=== PATIENT | female | born 1985 | race Caucasian/White ===

== ENCOUNTER 2016-12-22 05:45 | Observation (INO) | payer OTHER ==
[~2016-12-22] VITALS: Ht 165.1 cm; Wt 61.3 kg
[2016-12-22] VITALS (14 sets, daily range): BP systolic 127–154; BP diastolic 72–106; PULSE 59–82; RESP 11–18; O2SAT 95–100
--- NOTE | 2016-12-22 06:00 | ED.REPORT ---
HPI-Abd Pain F Under 40 Date of Service December 22, 2016 ED Provider: Campos Castro DO A healthy 31 year old female presents to the ER complaining of upper abdominal pain onset yesterday evening, worsening throughout the night. Pain radiates into her back. She also complains of nausea. Patient denies vomiting, diarrhea, abnormal vaginal bleeding, vaginal discharge, pelvic pain, and dysuria. She is on control. Nursing Notes Stated Complaint: ABDOMINAL PAIN Chief Complaint: Female Abdominal Pain Nursing Notes Reviewed: Yes Allergies: Coded Allergies: No Known Allergies (Verified , 12/22/16) General Time Seen by MD: 06:00 Chief Complaint Abdominal pain Hx Obtained From: Patient Arrived By: Walk-in Sudden in Onset?: No Onset Occurred: Yesterday Symptom Duration: Since onset Location: : Abdomen upper Quality: Fullness Radiation: : Back Severity: Current: Moderate Severity: Maximum: Moderate Associated with: Reports: Back pain, Denies: Diarrhea, Dysuria, Nausea, Vaginal bleeding, Vaginal discharge, Vomiting Pertinent Negative: Pt denies other symptoms Similar Sx Previous: No Past Medical History Past Medical History Pyloric stenosis as an Smoking History Never Smoker Social History Alcohol Use: Denies alcohol use Ambulatory Status Independent Review of Systems Constitutional: Denies: Chills, Fever Respiratory: Denies: Non-productive cough GI: Reports: Abdominal pain, Denies: Diarrhea, Nausea, Vomiting Female: Denies: Dysuria, Flank pain, Hematuria, Pelvic pain, , Vaginal bleeding - abnl, Vaginal discharge Musculoskeletal: Reports: Back pain Complete sys rev & neg: except as marked. Physical Exam Physical Exam Notes: mild cva ruq Initial Vital Signs Vital Signs (First) Date Time Temp Pulse Resp B/P Pulse Ox O2 Delivery O2 Flow Rate FiO2 12/22/16 05:50 36.3 74 16 127/80 100 Room Air Initial VS: Reviewed Head / Eyes: Atraumatic, Normocephalic Neck: Supple, Non-tender, Full range of motion Extremities: Vascular intact, Neuro intact, No swelling, No tenderness Skin: Warm, Dry, No cyanosis Neurologic: Alert, Oriented, Nonfocal Psychiatric: Mood/affect normal, Behavior normal, Normal thought content General/Constitutional: Awake, Alert, Well developed Distress / Hydration: Positive: Distress moderate Respiratory / Chest: Breath sounds NL, Breath sounds = bilat, No respiratory distress, No rales, No rhonchi, No wheezing Cardiovascular: Heart rate NL, Regular rhythm, Heart sounds NL, Peripheral circulation NL Abdomen: Soft, No guarding, No rebound, No distention Tenderness/Guarding/Rebound: Positive: Tender RUQ... (Moderate) Back: Full range of motion, No midline vertebral tend Right CVA tenderness. Interpretation & Diagnostics US ABDOMEN IMPRESSION: 1. Cholelithiasis with the focally thickened gallbladder wall measuring up to 4.4 mm and positive sonographic Barbosa sign. Developing cholecystitis cannot be excluded and close clinical correlation is recommended. 2. Dilatation of the extrahepatic bile duct and choledocholithiasis although not visualized sonographically, cannot be excluded. Correlate with LFTs and if indicated MRCP could be performed. Dr. Castro given results at 1046 hrs. 12/22/2016. Dictated by: Elie Bourgeois RRA Interpreted: Kodak Yu MD on 12/22/2016 at 10:43 Transcribed by: KRISTI on 12/22/2016 at 10:47 Lab Results Interpretation Result Diagram: 12/22/16 0650 12/22/16 0650 Test 12/22/16 06:00 12/22/16 06:50 Hold Urine Received (Received) White Blood Count 9.3th/mm3 (3.8-10.1) Red Blood Count 4.64mil/mm3 (3.90-5.20) Hemoglobin 11.4g/dL (12.0-15.6) Hematocrit 36.2% (35.0-46.0) Mean Corpuscular Volume 78.0fL (81-100) Mean Corpuscular Hemoglobin 24.6pg (27.0-35.0) Mean Corpuscular Hemoglobin Concent 31.5% (32.0-37.0) Red Cell Distribution Width 15.1% (12.3-15.4) Platelet Count 341bil/L (150-400) Neutrophils (%) (Auto) 83.5% (40-74) Lymphocytes (%) (Auto) 10.5% (14-46) Monocytes (%) (Auto) 4.6% (4-12) Eosinophils (%) (Auto) 0.8% (0-5) Basophils (%) (Auto) 0.4% (0-3) Prothrombin Time 10.3sec (8.1-12.5) Prothromb Time International Ratio 0.96ratio Sodium Level 140mEq/L (134-144) Potassium Level 4.0mEq/L (3.5-5.2) Chloride Level 102mEq/L (97-108) Carbon Dioxide Level 24mmol/L (18-29) Blood Urea Nitrogen 14mg/dL (6-20) Creatinine 0.49mg/dL (0.57-1.00) Estimat Glomerular Filtration Rate 214mL/min (>59) Glucose Level 118mg/dL (60-99) Calcium Level 9.2mg/dL (8.5-10.1) Magnesium Level 2.2mg/dL (1.6-2.6) Total Bilirubin 0.8mg/dL (0.0-1.2) Aspartate Amino Transf (AST/SGOT) 109U/L (0-50) Alanine Aminotransferase (ALT/SGPT) 57U/L (0-32) Alkaline Phosphatase 65U/L (25-150) Total Protein 7.2g/dL (6.4-8.4) Albumin 4.6g/dL (3.4-5.0) Lipase 45U/L (13-60) Hold Solomon Top Tube Received (Received) Re-Eval/Medical Decision Med Decision/Clinical Course Med Decision/Clinical Course: Acute cholecystitis. Will admit. Ancef given. Re-Evaluation/Progress #1: Time of Eval: 09:20 Re-Evaluation/Progress Note: Discussed lab results and updated patient on the plan of care. All questions addressed. Re-Evaluation/Progress #2: Time of Eval: 10:05 Re-Evaluation/Progress Note: Continues to have pain. I told her that we are still waiting on the results of her ultrasound. Re-Evaluation/Progress #3: Time of Eval: 10:58 Re-Evaluation/Progress Note: Discussed US results and need for admission. Patient is amenable to the plan. All other questions addressed. Consultation #1: Referral / Consult Name: Elie Bourgeois RPA, RA Consulted With: On-call physician (Radiology) Call Returned at: 10:44 Note: Discussed US results with Radiology. Early cholecystitis. Correlate bile duct with LFT's. Consultation #2: Referral / Consult Name: Saji Espinoza MD Consulted With: Surgeon Call Returned at: 10:49 Customer Sales Advisor: Agrees with eval, Agrees with plan, Accepts admit Counseled Regarding: Diagnosis, Lab results, Need for admission Discharge & Departure Primary Impression: Cholecystitis Disposition: ADMITTED TO HOSPITAL Discharge Condition All VS Reviewed: Yes Condition: Stable Referrals: Isaura Menjivar MD (PCP) Scribjodee Attestation Portions of this note were transcribed by Uvaldo Bruce. I, Dr. Castro, personally performed the history, physical exam and medical decision-making; I reviewed and confirmed the accuracy of the information in the transcribed note. Signed by: Deana Mccray, 12/22/2016 and 11:09 copies to: Isaura Menjivar MD, Timothy S DO December 22, 2016 06:00 UVALDO BRUCE December 22, 2016 06:18
[2016-12-22] MEDS ORDERED: 0.9% Sodium Chloride 1,000 ML IV ONE (06:37)
[2016-12-22] MEDS ORDERED: Ketorolac 15 mg/mL Inj IVPUSH ONE (06:40)
[2016-12-22] MEDS: Ondansetron 2 mg/mL 2 mL Inj IVPUSH PRN ×3 (06:54→21:54)
[2016-12-22 07:00] LABS: BASOPHILS % (AUTO) 0.4 % (0-3); EOSINOPHILS % (AUTO) 0.8 % (0-5); MONOCYTES % (AUTO) 4.6 % (4-12); Mean Corpuscular Hemoglobin 24.6 pg (27.0-35.0); NEUTROPHILS % (AUTO) 83.5 % (40-74); Platelet Count 341 bil/L (150-400)
[2016-12-22 07:34] LABS: Magnesium 2.2 mg/dL (1.6-2.6)
--- NOTE | 2016-12-22 10:48 | DRSVH ---
PROCEDURE: US ABDOMEN INDICATIONS: upper abd pain, abnl LFT TECHNIQUE: Real-time scanning was performed of the abdominal and retroperitoneal organs, with image documentatio n. COMPARISON: None. FINDINGS: Liver length: 17.36 cm Gallbladder Wall Thickness: 2.60 mm CHD: 1.10 cm CBD: 8.40 mm Spleen length: 10.31 cm Right kidney length: 11.93 cm Left kidney length: 11.00 cm Aorta(Proximal): 2.38 cm Aorta(Mid): 1.90 cm Aorta(Distal): 1.58 cm RCIA: 8.70 mm LCIA: 8.70 mm Liver: Liver is diffusely increased in echogenicity. No focal hepatic abnormalities identified. No rmal hepatic size. Gallbladder: Small gallstones present and the gallbladder wall is focally thickened measuring up to 4 .4 mm. Musical Therapist indicates positive sonographic Barbosa sign. Biliary ducts: Intrahepatic bile ducts are non-dilated. Extrahepatic bile duct caliber is dilated m easuring up to 11 mm Pancreas: Visualized portions of the pancreas are sonographically normal. Spleen: Spleen is normal in size and homogeneous in echotexture. Kidneys: Kidneys are normal in size and echotexture. No hydronephrosis or nephrolithiasis. No ramy d masses. Aorta: Visualized aorta is normal in caliber at less than 3 cm. Iliacs: Proximal common iliac arteries are normal in caliber at less than 2.5 cm. IVC: Intrahepatic inferior vena cava is patent. Miscellaneous: No free abdominal fluid. IMPRESSION: 1. Cholelithiasis with the focally thickened gallbladder wall measuring up to 4.4 mm and positive son ographic Barbosa sign. Developing acute cholecystitis cannot be excluded and close clinical correlati on is recommended. 2. Dilatation of the extrahepatic bile duct and choledocholithiasis although not visualized sonograph ically, cannot be excluded. Correlate with LFTs and if indicated MRCP could be performed. Dr. Castro given results at 1046 hrs. 12/22/2016. Dictated by: Elie ANGELES Interpreted: Kodak Yu MD on 12/22/2016 at 10:43 Transcribed by: KRISTI on 12/22/2016 at 10:47 Approved by: Kodak Yu M.D. on 12/22/2016 at 11:06
[2016-12-22] MEDS: 0.9% Sodium Chloride 1,000 ML IV SCH ×2 (10:49→20:33)
[2016-12-22] MEDS ORDERED: CeFAZolin Inj 2 GM in IV Premix 1 EACH IV ONE ×2 (10:50→12:15)
[2016-12-22 11:01] LABS: INR 0.96 ratio
--- NOTE | 2016-12-22 11:31 | PCM.HPSURG ---
Subjective Date of Service: December 22, 2016 Referring Provider: Admitting Physician: Primary Care Physician: Joelle Attending Physician: Chief Complaint Right upper quadrant pain History of Present Illness Surgical H&P: Attending physician Dr. Espinoza, Resident Physician Dr. Tillman Ms. Hong is a 31 year old female with no significant past medical history, past surgical history of for pyloric stenosis age 5 weeks who presented to the ED via POV secondary to RUQ abdominal pain x 1 day. She states that last night at about 2200 she had a sudden onset of RUQ sharp and shooting pain, radiating to her back and increasing in severity overnight. She had a similar episode to this one month prior which resolved on its own within the day. She states nausea but denies vomiting, states that she has had periods of hot and cold feeling with diaphoresis. She denies any GI or symptoms. States is not and is on control. No abnormal vaginal bleeding or discharge. Review of systems otherwise negative. Allergy Allergies: Coded Allergies: No Known Allergies (Verified , 12/22/16) Medications Medications: control implant left upper extremity Past Surgical History Operations: Abdominal surgery for pyloric stenosis at age 5 weeks 3 spontaneous vaginal births Social History Occupation: director business Hx Alcohol Use: No Hx Substance Use: No Hx Tobacco Use: No PMH Social History Hx Alcohol Use: NoHx Substance Use: No Smoking Status: Never Smoker H&P Surgical Exam Exam General: Alert, Oriented X3 Neck: Supple Lungs: Clear to Auscultation Heart: Exam Unremarkable Abdomen: Appropriately tender (right upper quadrant positive Barbosa sign) Lab & Micro Results: WBC 9.3, AST 109, ALT 57, total bili 0.8, lipase 45 Diagnostics: . US ABDOMEN IMPRESSION: 1. Cholelithiasis with the focally thickened gallbladder wall measuring up to 4.4 mm and positive sonographic Barbosa sign. Developing acute cholecystitis cannot be excluded and close clinical correlation is recommended. 2. Dilatation of the extrahepatic bile duct and choledocholithiasis although not visualized sonographically, cannot be excluded. Correlate with LFTs and if indicated MRCP could be performed. Dictated by: Elie ANGELES Interpreted: Kodak Yu MD on 12/22/2016 at 10:43 Additional Information: Afebrile Assessment & Plan Assessment Assessment & Plan 1. Cholecystitis - Nothing by mouth - Cefazolin given in ED - Laparoscopic Cholecystectomy scheduled 12/22/2016 2. Hyperglycemia - No A1c on record - Consider correctional scale Pain Evaluation: Adequate Pain Control VTE Prophylaxis: SCDs Resuscitation Status: CPR: Attempt Resuscitation Attending Statement: I personally interviewed and examined the pt, and I agree with Dr. iTllman's assessment and plan. Proceed to surgery. KEI TILLMAN DO December 22, 2016 11:31 Saji Espinoza MD December 27, 2016 12:06
[2016-12-22] MEDS ORDERED: Succinylcholine Chloride 20 mg/mL 5 mL Inj ONE (12:46)
[2016-12-22] MEDS ORDERED: Ketamine 10 mg/mL 20 mL Inj ONE (12:46)
[2016-12-22] MEDS ORDERED: Neostigmine 1 mg/mL 10 mL Inj ONE (12:46)
[2016-12-22] MEDS ORDERED: Glycopyrrolate 0.2 MG/ML 1mL Inj ONE (12:46)
[2016-12-22] MEDS ORDERED: Rocuronium 10 mg/mL 5 mL Inj ONE (12:46)
[2016-12-22] MEDS ORDERED: Dexamethasone 4 mg/mL Inj ONE (12:46)
[2016-12-22] MEDS ORDERED: fentaNYL-PF 50 mCg/mL 2 mL Inj ONE ×2 (12:46→17:14)
[2016-12-22] MEDS ORDERED: Propofol 10,000 mCg/mL 20 mL Inj ONE (12:46)
[2016-12-22] MEDS ORDERED: Ondansetron 2 mg/mL 2 mL Inj ONE (12:46)
[2016-12-22] MEDS ORDERED: Lactated Ringer's 1,000 ML IV ONE ×2 (15:29→17:00)
--- NOTE | 2016-12-22 15:45 | NUR ---
Arrival to Floor Patient arrived to floor at 1345. Patient alert and oriented, vital signs stable. Patient complains of some abdominal discomfort, but states it is tolerable and declines medication or other intervention. Ordered IV fluids hung. Care is ongoing.
[2016-12-22] MEDS ORDERED: Bupivacaine-MPF 0.5% W/EPI 30 mL Inj INJ ONE (16:03)
[2016-12-22] MEDS ORDERED: Iopamidol-300 50 mL Inj IV ONE (16:04)
[2016-12-22] MEDS ORDERED: Lactated Ringer's 1,000 ML IV SCH (16:12)
[2016-12-22] MEDS ORDERED: Lactated Ringer's 500 ML IV PRN (16:12)
--- NOTE | 2016-12-22 16:12 | PCM.HPANE ---
Patient Data Date of Service: December 22, 2016 Surgeon Admitting Provider:Saji Espinoza MD Attending Provider:Saji Espinoza MD Primary Care Physician:Nopcp Other Provider: Reason for Visit Cholecystitis Ht/WT & BMI Height (Feet): 5 Height (Inches): 5.00 Weight (Kilograms): 61.300 Body Mass Index 22.52 Allergies Coded Allergies: No Known Allergies (Verified , 12/22/16) Past Anesthesia History Anesthesia History: Denies:: Abnormal Airway, Anesthesia Reactions, Difficult Intubation, Fam Anesthesia Reaction, Fam Malignant Hypertherm, Malignant Hyperthermia Diabetes History Hx Diabetes?: No MRSA MRSA: No Medications Hypertension Medication: No Home Meds Incl Beta Stuart: No No Active Prescriptions or Reported Meds History History of ENT Problems?: No HEENT History: Denies:: Abnormal Airway Cataracts Difficult Intubation Dysphagia Glaucoma Hearing Problem Sinus Problem TMJ Denture Type: None Teeth Condition: Within Normal Limits Hx of Heart Problems?: No Cardiovascular History: Denies:: AICD Abdominal Aortic Aneurism Atrial Fibrillation Cardiac Surgery Chest Pain Congestive Heart Failure Coronary Artery Disease Edema Heart Murmur Hypertension Irregular Heartbeat Pacemaker Peripheral Vascular Rheumatic Fever Thrombophlebitis Valvular Heart Disease Hx of Respiratory Problem?: No Respiratory History: Denies:: Asthma COPD Chest Surgery Cough Dyspnea Emphysema Hemoptysis Oxygen Administration Pneumonia Pulmonary Embolism Tuberculosis Use of C-PAP Machine Use of Inhalers / NEBS Hx Neurologic Problems?: No Neurological History: Denies:: Alzheimer's Disease CVA Dementia Dizziness Headaches Multiple Sclerosis Parkinson's Disease Peripheral Neuropathy Seizures TIA Hx of GI Problems?: No Gastrointestinal History: Denies:: Cirrhosis Diverticulitis Gall Bladder Disease Gastroesphageal Reflux Gastrointestinal Bleeding Heartburn Hepatitis Hiatal Hernia Liver Disease Rectal Bleeding Hx of Problems?: No HX of Peritoneal Dialysis: No Female Hx: Denies:: Currently Endometriosis Pelvic Inflammatory Problems with Breasts? Skin History: Denies:: History Skin Disorders? Pressure Ulcers Hx Musculoskeletal Problems?: No Hx of Psycho/Social Problems?: No Hx Surgeries?: Yes Other History/Comment pylorotomy age 5 weeks Hx Any Other Health Problems?: No History Blood Transfusions: Positive for:: Accept Blood Products? Denies:: Blood Transfusions Hx Diabetes: No Occupation: diesel power mechanic Hx Alcohol Use: NoHx Substance Use: No Smoking Status: Never Smoker Stop/Bang Treated for Sleep Apnea?: No Do You Have a CPAP Machine?: No S-Snoring: Do You Snore Loudly: No T-Tired: feel tired, fatigued: No O-Obsered: Observed not breath: No P-Blood Pressure: treated: No B- Body Mass Index > 35 kg/m2: No A- Age over 50: No N- Neck Large Circumference: No G- Gender Male: No ULICES Total Score: 0 ULICES Risk Assessment: Low Risk, <3 Yes Risk Assessment Category Category 1A: Patient has history of documented sleep apnea, and HAS NOT received any narcotic, sedative or anesthesia administration during this stay. Category 1B: Patient has history of documented sleep apnea, and HAS received any narcotic , sedative or anesthesia administration during this stay Category 2: Patient has SUSPECTED Obstructive Sleep Apnea, and HAS received any narcotic , sedative or anesthesia administration during this stay. Category 3: Patient has SUSPECTED Obstructive Sleep Apnea and HAS NOT received narcotic, sedative or anesthesia administration during this stay. Category 4: Outpatient in Procedural Areas with known sleep apnea or who screen positive for High Risk via the STOP/BANG questionnaire. Exam Exam Vital Signs Vital Signs Date Time Temp Pulse Resp B/P Pulse Ox O2 Delivery O2 Flow Rate FiO2 12/22/16 14:14 36.7 74 18 143/91 95 Room Air 12/22/16 10:52 37.0 74 12 127/84 99 Room Air General Appearance: Alert, Oriented X3 HEENT/AIRWAY: MP 2 Lungs: Clear to Auscultation Heart: Exam Unremarkable Meds/Labs/Diagnostics Admission Meds Current Medications Sodium Chloride (Normal Saline) 1,000 ml @ 0 mls/hr Q0M ONCE IV Last administered on 12/22/16 06:53; Start 12/22/16 at 06:37; Stop 12/22/16 at 06:39; Status DC Ketorolac Tromethamine 15 mg 15 mg ONCE ONCE IVPUSH Last administered on 06:53; Start 12/22/16 at 06:40; Stop 12/22/16 at 06:41; Status DC Sodium Chloride 1,000 ml @ 100 mls/hr Q10H IV Last administered on 12/22/16 10 :49; Start 12/22/16 at 10:00 Cefazolin Sodium/ Dextrose/Premix (Ancef Inj / D5W 50mL/IV Premix) 50 ml @ 100 mls/hr ONCE ONCE IV Last administered on 12/22/16 13:03; Start 12/22/16 at 12: 15; Stop 12/22/16 at 12:44; Status DC Bupivacaine HCl/ Epinephrine Bitart (Sensorcaine-MPF 0.5% W/EPI Inj) 30 ml STK- MED ONCE INJ Last administered on 12/22/16 16:03; Start 12/22/16 at 16:03; Stop 12/22/16 at 16:06; Status DC Iopamidol 50 ml 50 ml STK-MED ONCE IV Last administered on 12/22/16 16:04; Start 12/22/16 at 16:04; Stop 12/22/16 at 16:06; Status DC Lactated Ringer's (Lr) 1,000 ml @ ud STK-MED ONCE IV Last administered on 15:29; Start 12/22/16 at 15:29; Stop 12/22/16 at 16:06; Status DC Labs Test 12/22/16 06:00 12/22/16 06:50 Hold Urine Received (Received) White Blood Count 9.3th/mm3 (3.8-10.1) Red Blood Count 4.64mil/mm3 (3.90-5.20) Hemoglobin 11.4g/dL (12.0-15.6) Hematocrit 36.2% (35.0-46.0) Mean Corpuscular Volume 78.0fL (81-100) Mean Corpuscular Hemoglobin 24.6pg (27.0-35.0) Mean Corpuscular Hemoglobin Concent 31.5% (32.0-37.0) Red Cell Distribution Width 15.1% (12.3-15.4) Platelet Count 341bil/L (150-400) Neutrophils (%) (Auto) 83.5% (40-74) Lymphocytes (%) (Auto) 10.5% (14-46) Monocytes (%) (Auto) 4.6% (4-12) Eosinophils (%) (Auto) 0.8% (0-5) Basophils (%) (Auto) 0.4% (0-3) Prothrombin Time 10.3sec (8.1-12.5) Prothromb Time International Ratio 0.96ratio Sodium Level 140mEq/L (134-144) Potassium Level 4.0mEq/L (3.5-5.2) Chloride Level 102mEq/L (97-108) Carbon Dioxide Level 24mmol/L (18-29) Blood Urea Nitrogen 14mg/dL (6-20) Creatinine 0.49mg/dL (0.57-1.00) Estimat Glomerular Filtration Rate 214mL/min (>59) Glucose Level 118mg/dL (60-99) Calcium Level 9.2mg/dL (8.5-10.1) Magnesium Level 2.2mg/dL (1.6-2.6) Total Bilirubin 0.8mg/dL (0.0-1.2) Aspartate Amino Transf (AST/SGOT) 109U/L (0-50) Alanine Aminotransferase (ALT/SGPT) 57U/L (0-32) Alkaline Phosphatase 65U/L (25-150) Total Protein 7.2g/dL (6.4-8.4) Albumin 4.6g/dL (3.4-5.0) Lipase 45U/L (13-60) Hold Solomon Top Tube Received (Received) Plan Impression Patient chart reviewed, patient interviewed and anesthestic plan with risks, benefits, and alternatives discussed, and informed consent obtained. NPO per Anesth. Guidelines: Yes ASA Physical Status: ASA2 Mod Systemic Disease Anesthetic Plan: GA Bene/Risks/Altern/Consents: Yes HP Complete Prior to Induction: Yes Wyatt Pereira MD December 22, 2016 16:12
[2016-12-22] MEDS ORDERED: Ondansetron 2 mg/mL 2 mL Inj IVPUSH PRN (16:15)
[2016-12-22] MEDS ORDERED: HYDROmorphone 1 mg/mL Inj IVPUSH PRN (16:15)
[2016-12-22] MEDS ORDERED: Phenylephrine 10,000 mCg/mL Inj IVPUSH PRN (16:15)
[2016-12-22] MEDS ORDERED: EPHEDrine Sulfate 50 mg/mL Inj IVPUSH PRN (16:15)
[2016-12-22] MEDS ORDERED: Dexamethasone 4 mg/mL Inj IVPUSH PRN (16:15)
[2016-12-22] MEDS ORDERED: MetoCLOpramide 5 mg/mL 2 mL Inj IVPUSH PRN (16:15)
--- NOTE | 2016-12-22 16:29 | DRSVH ---
PROCEDURE: X-RAY OPERATIVE CHOLANGIOGRAM ([id number]) INDICATIONS: SURGERY COMPARISON: None. FINDINGS: Biliary ducts: The surgeon injected contrast into the biliary ducts after cannulation of the cystic duct stump. Visualized intra- and extrahepatic bile ducts are enlarged without definite intraluminal filling defect. Moderate narrowing of the duct at the level of the ampulla is noted. No evidence f or iatrogenic ductal injury. Duodenum: Contrast flows promptly through the sphincter of Oddi into the duodenum. IMPRESSION: 1. Enlarged common bile duct without a definite intraluminal calculus. 2. Narrowing of the distal common bile duct is likely related to prominence of the sphincter of Oddi and of doubtful significance. Dictated by: Bennett Olsen M.D. on 12/22/2016 at 15:26 Approved by: Bennett Olsen M.D. on 12/22/2016 at 15:28
[2016-12-22] MEDS: fentaNYL-PF 50 mCg/mL 2 mL Inj IVPUSH PRN ×2 (17:18→17:38)
[2016-12-22] MEDS: HYDROmorphone 0.5 mg/0.5 mL iSecure Syringe IVPUSH PRN ×2 (18:02→20:33)
--- NOTE | 2016-12-22 23:52 | OP ---
[address] [address] OPERATIVE REPORT PATIENT: SUSI OCONNOR : 1985 MR#: [id number] ADMIT: 12/22/2016 JOB ID: [id number] DATE OF SURGERY: 12/22/2016 SURGEON: Saji Espinoza MD. ASSOCIATE FINANCIAL ADVISOR: Livan Mendoza PA-C and Dsutin Mueller. ANESTHESIA: General. PREOPERATIVE DIAGNOSIS(ES): 1. Cholelithiasis. 2. Possible cholecystitis. POSTOPERATIVE DIAGNOSIS(ES): 1. Cholelithiasis. 2. Cholecystitis. PRINCIPAL PROCEDURE: Laparoscopic cholecystectomy with intraoperative cholangiogram. INDICATION FOR PROCEDURE: The patient is a 31-year-old female with a right upper quadrant pain and an ultrasound finding consistent with cholelithiasis and possible cholecystitis. PRINCIPAL FINDING: Definite cholelithiasis and there was pericholecystic fluid and edema consistent with acute cholecystitis. The intraoperative cholangiogram was normal. The assistance from a surgical PA was critical in completion of the case. PROCEDURE COURSE: The patient was brought to the operating table and was provided with general anesthesia. The patient had received IV antibiotics and she was provided with SCDs. A time-out was performed. The patient's abdomen was then prepped and draped in the usual sterile fashion. Next, a local anesthetic was injected into the infraumbilical location and attempts to insufflate at this location was not successful. Decision was changed to a left upper quadrant location. Local anesthetic was injected and a small stab incision was made. Insufflation through the left upper quadrant was successful. A 5 mm trocar was then placed and in the laparoscope was then introduced. Looking back at the infraumbilical location, the Veress needle did not penetrate the peritoneum. Next, a 5 mm trocar was then placed in the infraumbilical location under direct visualization successfully. A 12 mm trocar was then placed in the subxiphoid location, and two additional 5 mm trocars had been placed in the right lateral abdomen. The gallbladder was retracted cephalad. Some omental adhesions were taken down using electrocautery. Towards the infundibulum of the gallbladder, there was definite pericholecystic fluid and gallbladder wall edema consistent with cholecystitis. Dissection of the Calot's triangle was then carried out and the cystic duct was circumferentially isolated. A clip was then placed on the gallbladder/cystic duct junction, and a partial transection of the duct was made. Intraoperative cholangiogram demonstrated normal biliary anatomy both proximally and distally without any filling defects, and the contrast drained into the duodenum. The cholangiocatheter was then removed from the patient. Two additional clips were then placed on the proximal cystic duct and then the cystic duct was then transected. The cystic artery was dissected out, identified, clipped and divided. Electrocautery was then used to detach the gallbladder from the gallbladder fossa. The specimen was then placed into the EndoCatch bag and removed from the patient. Irrigation of the operative bed was carried out and suctioned. Inspection of the clips showed that they were intact and there were no signs of arterial bleeding or bile leak at the end the case. Next, we turned our attention to the subxiphoid port. The fascial defect there was then reapproximated using 0 Vicryl suture using the Endo Close device. Next, CO2 was allowed to escape and all the trocars were then removed from the patient. Skin edges were then reapproximated using absorbable sutures. Steri-Strips and sterile dressing were then placed over each wound. By the end of procedure, needle counts and sponge counts were correct. The patient was then extubated and taken to the recovery room in stable, satisfactory condition.
--- NOTE | 2016-12-23 01:34 | NUR ---
Shift Note Pt. c/o of 12/28 abd. pain, given prn dilaudid with a state of relief, pt. ambulated to the BR with SBA steady gait, denies N/V at this time, no other discomfort voiced this shift, call light in reach, hourly rounds, vitals stable,afebrile, all needs attended, will continue to monitor for any changes in condition.
[2016-12-23 04:59] VITALS: BP 160/119; PULSE 79; RESP 16; O2SAT 100
[2016-12-23] MEDS: HYDROmorphone 0.5 mg/0.5 mL iSecure Syringe IVPUSH PRN (05:01)
[2016-12-23 05:21] LABS: BASOPHILS % (AUTO) 0.2 % (0-3); EOSINOPHILS % (AUTO) 0.1 % (0-5); Mean Corpuscular Hemoglobin 24.6 pg (27.0-35.0); Mean Corpuscular Volume 78.2 fL (81-100); NEUTROPHILS % (AUTO) 82.6 % (40-74); Platelet Count 333 bil/L (150-400)
[2016-12-23] MEDS: 0.9% Sodium Chloride 1,000 ML IV SCH (05:52)
--- NOTE | 2016-12-23 08:04 | PCM.PNSURG ---
Subjective Date of Service: December 23, 2016 Date of Service: December 23, 2016 Visit Information: Reason for Visit Cholecystitis Surgery/Surgery Date 12/22/2016 Post-Op Day # 1 Date of Admission: December 22, 2016 at 13:31 Hospital Day # 2 Subjective: Overnight she had significant pain waking her from sleep at ~ 04:00 this was relieved with IV Dilaudid. She took Zofran for nausea with effect. No vomiting. She complained of some pain and discomfort in her RUQ. No bowel or passage of flatus as of yet. She is able to get out of bed and ambulate to the bathroom where she is able to void urine. Denies fever or night sweats. Diet of clear liquids, able to eat and keep down jello. Postop General: No Shortness of Breath, No Chest Pain Gastrointestinal: No Belching, Complains of Nausea Pain Management: IV Push Postop Activity: Ambulate without Assist Objective Vital Sign- Last 8 Hours Date Time Temp Pulse Resp B/P Pulse Ox O2 Delivery O2 Flow Rate FiO2 12/23/16 04:59 36.9 79 16 160/119 100 Room Air Intake and Output- Last 8 Hour 12/23/16 Cumulative From/Thru 07:00 12/22/16 05:50 - 12/23/16 06:17 Intake Total 2048 ml 4748 ml Output Total 750 ml 770 ml Balance 1298 ml 3978 ml Intake Oral 918 ml 1318 ml IV Total 1130 ml 3430 ml Output Urine Total 750 ml 750 ml Estimated Blood Loss 20 ml # Bowel Movements 0 0 General: Alert Lungs: Clear to Auscultation Heart: Exam Unremarkable Abdomen: Appropriately tender SURGICAL WOUND : Wound General Appearence: Steri Strips, No Erythema, No Discharge Result Diagram: 12/23/16 0450 12/23/16 0450 Diagnostics: . X-RAY OPERATIVE CHOLANGIOGRAM IMPRESSION: 1. Enlarged common bile duct without a definite intraluminal calculus. 2. Narrowing of the distal common bile duct is likely related to prominence of the sphincter of Oddi and of doubtful significance. Dictated by: Bennett Olsen M.D. on 12/22/2016 at 15:26 Assessment & Plan Impression Assessment & Plan: 1. Laparoscopic cholecystectomy, post op day 1 - Transition to oral pain meds - Advanced diet as tolerated to general diet - Promote continued ambulation - Miralax - Zofran - IVF 100/hr - Cont ABX 2. Elevated Liver function tests. Present on admission. - Most likely secondary to #1 - Denies EtOH use - Continue to monitor Problems: VTE Prophylaxis: SCDs Resuscitation Status: CPR: Attempt Resuscitation Attending Statement: I agree with Dr. Dupont's assessment and plan. KEI DUPONT DO December 23, 2016 08:04 Saji Espinoza MD December 27, 2016 12:01
--- NOTE | 2016-12-23 08:17 | PCM.ANEP1 ---
Post Anesthesia Phase 1 PACU Phase 1 Assessment Date of Service: December 22, 2016 Vital Signs Vital Signs Date Time Temp Pulse Resp B/P Pulse Ox O2 Delivery O2 Flow Rate FiO2 12/23/16 04:59 36.9 79 16 160/119 100 Room Air Level of Alertness: Awake, talking EPPS's with Equal Strength: Yes Pain: Yes Pain Scale Score: 8 Nausea or Vomiting: No Oxygen Delivery: Room Air Lungs: Clear to Auscultation Complications: No Follow up Care: No Wyatt Pereira MD December 23, 2016 08:17
[2016-12-23] MEDS ORDERED: Polyethylene Glycol (PEG) 17 Gm Powder PO SCH (08:30)
[2016-12-23] MEDS: Ondansetron 2 mg/mL 2 mL Inj IVPUSH PRN (08:47)
[2016-12-23] MEDS: HYDROcodone-APAP 5-325 mg Tablet PO PRN ×2 (08:52→11:33)
--- NOTE | 2016-12-23 11:09 | NUR ---
Social Work- Initial Screening, Readiness for Discharge Data: EMR reviewed. Pt is a 31 year old female admitted under observation status 12/22/16 for cholecystitis per H&P. Pt is POD 1. Pt's insurance is [employer]. Pt has no PCP, pt agreeable to [facility] Appointment. UR Specialist to make this appointment and update ANALYTICAL STRATEGIST. Pt resides in [place] with her parents where she remains independent. Pt is employed and drives. Per RN note, Pt has been up ambulating in her room. Pt has no DPOA on file, declined DPOA paperwork at this time. Pt to discharge home via POV or parents to transport. No anticipated discharge needs. SW will continue to follow. Assessment: [place] independent [place] base. Plan: UR Specialist to make PCP appointment at the [facility]. Pt to discharge home via POV or parents to transport. No anticipated discharge needs. SW will continue to follow. Yue Sol, ANALYTICAL STRATEGIST
--- NOTE | 2016-12-23 11:10 | PCM.DISURG ---
Surgical Discharge Instruction Date of Service December 23, 2016 Dates of Hospitalization Date of Hospital Admission December 22, 2016 at 13:31 Providers Admitting Physician: Saji Espinoza MD Primary Care Physician: Joelle Attending Physician: Saji Espinoza MD Discharge Diagnosis Discharge Diagnosis Cholecystitis Post Operative diagnosis Laparoscopic cholecystectomy without complication Diet Discharge Diet: No restrictions Activity Discharge Activity-General: Try not to overdue Dressing and Incisional Care Dressing Care: Allow Steri Stripes to fall off Hygiene: May shower Additional Instructions Discharge Instructions Please rest for the next week or so, it is important that you continue to get up and walk around, though try not to overdo it. Please take your pain medicine as needed and as instructed by the pharmacist. Additional Instructions I am giving you two prescriptions, the first is for hydrocodone/acetaminophen 5/ 325 mg. Please take one of these tablets every 3-4 hours by mouth as needed for pain. You may also take acetaminophen (Tylenol) instead of this medication, though please do not take more than 4,000 mg of acetaminophen in a 24 hour period. I am also giving you a prescription for Zofran. Please take 1 tablet of this medication by mouth every 4 hours as needed for nausea. Follow Up Plan Follow Up Plan Follow-up [facility] in 2-3 weeks Mid-level Provider (F9): Livan Mendoza PA-C Follow-up appointment: Weeks (2-3 weeks) Call your provider for: Fever, Chills, Shortness of breath, Increasing abdominal pain, Nausea, Vomiting, Wound redness, Increasing wound pain, Warmth to touch, Discharge @ incision, pus discharge KEI DUPONT DO December 23, 2016 11:10
--- NOTE | 2016-12-23 11:13 | PCM.DC.SUR ---
Discharge Summary Date of Service: December 23, 2016 Date of Hospital Admission: December 22, 2016 at 13:31 Date of Operation(s): 12/22/2016 Date of Discharge: 12/23/2016 Diagnosis at Time of Discharge Cholecystitis, status post laparoscopic cholecystectomy Problems: Operation Cystectomy Brief History and Physical: Surgical H&P: Attending physician Dr. Espinoza, Resident Physician Dr. Tillman Ms. Hong is a 31 year old female with no significant past medical history, past surgical history of for pyloric stenosis age 7 weeks who presented to the ED via POV secondary to RUQ abdominal pain x 1 day. She states that last night at about 2200 she had a sudden onset of RUQ sharp and shooting pain, radiating to her back and increasing in severity overnight. She had a similar episode to this one month prior which resolved on its own within the day. She states nausea but denies vomiting, states that she has had periods of hot and cold feeling with diaphoresis. She denies any GI or symptoms. States is not and is on control. No abnormal vaginal bleeding or discharge. Review of systems otherwise negative. Hospital Course: Patient presented to ED secondary to right upper quadrant abdominal pain, underwent elective laparoscopic cholecystectomy without complication. Recovered well postoperatively requiring some IV pain medication. Was successfully transitioned to oral pain medication Patient was able to pass flatus by discharge, able to ambulate and void urine without difficulty. Some reported nausea that was relieved with Zofran. Disposition: Discharged to home in stable condition Follow-up Plan: Follow up with Livan Mendoza PA-C in 2-3 weeks Hydrocodone-Acetaminophen 5-325 mg (Hydrocodone-Acetaminophen 5-325 mg) 1 Each Tablet 1-2 TABLET PO Q3H PRN PRN For Pain Ondansetron (Zofran) 4 Mg Tablet 4 MG PO Q4H PRN PRN For Nausea Discharge Medications: 15 tabs hydrocodone/acetaminophen 5/325mg 30 tabs Zofran 4mg Additional Information Discharge Instructions Please rest for the next week or so, it is important that you continue to get up and walk around, though try not to overdo it. Please take your pain medicine as needed and as instructed by the pharmacist. Additional Instructions I am giving you two prescriptions, the first is for hydrocodone/acetaminophen 5/ 325 mg. Please take one of these tablets every 3-4 hours by mouth as needed for pain. You may also take acetaminophen (Tylenol) instead of this medication, though please do not take more than 4,000 mg of acetaminophen in a 24 hour period. I am also giving you a prescription for Zofran. Please take 1 tablet of this medication by mouth every 4 hours as needed for nausea. KEI TILLMAN DO December 23, 2016 11:13
[2016-12-23] MEDS ORDERED: ONDA4TAB6 PO (11:20)
[2016-12-23] MEDS ORDERED: HYDR-4003 PO (11:21)
--- NOTE | 2016-12-23 12:52 | NUR ---
Discharge Pt left with family in stable condition with all belongings at 1245, IV d/c'd, prescriptions given. instructions for scheduling follow up appointments given. Pt tolerated lunch without nausea, pain tolerable with Oral pain medications.
--- NOTE | 2016-12-23 13:27 | NUR ---
Scheduled [facility] appointment for January 02 check in at 1040 AM for a 1050 AM appointment with Updated CUSTOM CAR BUILDER
--- NOTE | 2016-12-23 14:29 | NUR ---
Social Work updated pt by phone regarding PCP appointment at [facility]. Pt agreeable to plan. MINISTERIO Manuel
[2016-12-23] MEDS ORDERED: CeFAZolin Inj 2,000 MG in Dextrose 5% 50 ML IV SCH (21:00)
--- NOTE | 2016-12-26 11:02 | PATH ---
SURGICAL PATHOLOGY Attending Physician:Saji Espinoza M.D. CASE STATUS: Signed Out PATIENT NAME: SUSI OCONNOR PID: [id number] : 1985 DATE COLLECTED:12/22/2016 00:00 SPECIMEN: Gallbladder CLINICAL HISTORY: CHOLECYSTITIS 1). GALLBLADDER FINAL DIAGNOSIS: 1.GALLBLADDER: ACALCULOUS MILD CHRONIC CHOLECYSTITIS. ICD10 CODE K80.7 GROSS DESCRIPTION: The specimen is received in one formalin filled container labeled with the patient's name, sublabeled "gallbladder" and consists of an opened 7.5 x 3.5 x 1.5 CM gallbladder. The serosa is smooth. The wall is 0.2-0.7 CM in thickness. The mucosa is a pink to green green in color. The lumen contains a light green mucoid material and no calculus are noted. 5 sales representatives sections are submitted in one cassette. 12/23/2016 DAC MICRO DESCRIPTION: See diagnosis. ICD-9 CODES: CPT CODES: 1: 87391 Electronically Signed Out Adiren Jj MD [facility] [address], [place] [address] Technical component performed at [facility], [address] [place] [address] [address], [place], [address]
== END 2016-12-23 12:47 | disposition home or self-care (01) ==
LOC: SED 05:45 → SAS 11:34 → OSC 13:31
PROVIDERS: ADMIT Surgery; ATTEND Surgery
DX: K81.1 Chronic cholecystitis (principal)
CPT/HCPCS: 36415; 47563; 74300; 76700; 80053; 81025; 83690; 83735; 85025; 85610; 88304; 94640; 96361; 96374; 96375; 96376; 99285; G0378; J0330; J0690; J1100; J1170; J1885; J2250; J2270; J2405; J2710; J3010; J7030; J7120; Q9967